=== PATIENT | male | born 1970 | race Caucasian/White ===

== ENCOUNTER → 2020-02-29 | Outpatient (CLI) | payer OTHER ==
--- NOTE | 2020-02-29 11:30 | US ---
EXAMINATION TYPE: US extremity nonvasc mass Rt DATE OF EXAM: 02/29/2020 COMPARISON: NONE CLINICAL HISTORY: 49-year-old male R22.2 SWELLING, MASS AND LUMP, TRUNK. Palpable noted lateral right lower thoracic area, and previous history of lipoma per patient. TECHNIQUE: Targeted sonographic examination on the patient's palpable site just left lateral of the t horacolumbar junction. 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 This seems to be located in the superficial muscle layer. No associated vas cularity. IMPRESSION: Vague hypoechoic area measuring 9 mm seems to correspond to the palpable site just right lateral to t he posterior thoracolumbar junction, localized to the superficial muscle layer. The exact etiology is unclear, consider a small contusion or some scarring. Clinical follow-up is recommended. If any enla rging palpable area develops, the area can be rescanned.
== END | disposition home or self-care (01) ==
LOC: RADUSWWP 09:50
PROVIDERS: ATTEND Family Medicine
DX: R22.2 Localized swelling, mass and lump, trunk (principal)

== ENCOUNTER 2020-09-05 08:36 | Day surgery (SDC) | payer OTHER ==
[2020-09-03 14:42] VITALS: BMI 30.2
[~2020-09-05 08:36] MED LIST: LACTATED RINGERS 1,000 ML IV SCH; LIDOCAINE 1% (10MG/ML) FOR IV START INTRADERMA PRN
[2020-09-05 10:00] VITALS: TEMP 97.1
[2020-09-05] MEDS ORDERED: fentaNYL (PF) 50 MCG/ML 2 ML AMP ONE (10:39)
[2020-09-05] MEDS ORDERED: MIDAZOLAM 2 MG/2 ML VIAL ONE (10:39)
[2020-09-05] MEDS ORDERED: LIDOCAINE 1% INJ 10MG/ML (20 ML MDV) ONE (10:39)
[2020-09-05] MEDS ORDERED: PROPOFOL 10 MG/ML 20 ML VIAL IV ONE (10:39)
--- NOTE | 2020-09-05 10:48 | P.PCN ---
Date of Procedure: 09/05/20 Procedure(s) Performed: BRIEF HISTORY: Patient is a 50-year-old, pleasant, white male scheduled for an upper endoscopy as a part of long-standing history of gastroesophageal reflux disease was 15 years duration.. He is on Prilosec 20 mg daily for the last 10 years. He scheduled for an upper endoscopy were propagated reflux PROCEDURE PERFORMED: Esophagogastroduodenoscopy with biopsy. PREOPERATIVE DIAGNOSIS: Long standing history of GERD. IV sedation per anesthesia. PROCEDURE: After informed consent was obtained, the patient was brought into the endoscopy unit. IV sedation was administered by Anesthesia under continuous monitoring. Initially the Olympus GIF-140 video endoscope was inserted into the mouth. Esophagus intubated without any difficulty. It was gradually advanced into the stomach and duodenum and carefully examined. The bulb and the second part of the duodenum appeared normal. The scope at this time was withdrawn to the stomach, adequately insufflated with air, and upon careful examination, mucosa of the antrum, had mild mottling of the mucosa which was biopsied. The body, cardia and the fundus appeared normal. The scope was then withdrawn into the esophagus. The GE junction was located at 39 cm from the incisors. It appeared slightly irregular. The rest of esophagus appeared esophagus appeared normal. There were no erosions or ulcerations seen and the patient tolerated the procedure well. IMPRESSION: 1. Minimal antral gastritis. 2. Irregular GE junction but no evidence of esophagitis or Leon's esophagus. RECOMMENDATIONS: The findings of this examination were discussed with the patient as well as his family.. He was advised to follow with the biopsy results. he will continue with Prilosec 20 mg daily and follow antireflux measures.
[2020-09-05 10:54] VITALS: RESP 16
[2020-09-05 11:17] VITALS: BP 119/82; PULSE 89
== END 2020-09-05 11:30 | disposition home or self-care (01) ==
LOC: ORWHC2ENDO 08:36
PROVIDERS: ATTEND Internal Medicine Gastroenterology
DX: K21.9 Gastro-esophageal reflux disease without esophagitis (principal); K29.70 Gastritis, unspecified, without bleeding; K22.8 Other specified diseases of esophagus; I10 Essential (primary) hypertension; Z79.51 Long term (current) use of inhaled steroids; Z79.899 Other long term (current) drug therapy; Z98.890 Other specified postprocedural states; F17.210 Nicotine dependence, cigarettes, uncomplicated
CPT/HCPCS: 88305; 43239; J2250; J2001; J3010; J2704

== ENCOUNTER 2020-10-31 09:39 | Day surgery (SDC) | payer OTHER ==
[2020-10-30 10:40] VITALS: BMI 30.7
[2020-10-31 10:53] VITALS: TEMP 98
[2020-10-31] MEDS ORDERED: PROPOFOL 10 MG/ML 20 ML VIAL IV ONE (11:07)
--- NOTE | 2020-10-31 11:26 | P.PCN ---
Date of Procedure: 10/31/20 Procedure(s) Performed: BRIEF HISTORY: Patient is a 50-year-old pleasant 8 male scheduled for an elective colonoscopy as a part of evaluation of intermittent rectal bleeding for the last few weeks duration. PROCEDURE PERFORMED: Colonoscopy snare polypectomy. PREOPERATIVE DIAGNOSIS: Intermittent rectal bleeding. IV sedation per Anesthesia. PROCEDURE: After informed consent was obtained, the patient, was brought into the endoscopy unit. IV sedation was administered by Anesthesia under continuous monitoring. Digital rectal examination was normal. Initially the Olympus CF-160 flexible video colonoscope was then inserted in the rectum, gradually advanced into the cecum without any difficulty. Careful examination was performed as the scope was gradually being withdrawn. Ileocecal valve and the appendiceal orifice were visualized and appeared normal. Prep was excellent. Mucosa of the cecum, appeared normal. In the hepatic flexure there was a 7 mm polyp removed by snare polypectomy. Rest of the ascending colon, transverse colon, descending colon, sigmoid colon, and rectum appeared normal. In the proximal rectum there was a 5 mm polyp removed by snare polypectomy. Retroflexion was performed in the rectum and small internal hemorrhoids were seen. The patient tolerated the procedure we ll. IMPRESSION: Grade 2 internal hemorrhoids 7 mm hepatic flexure polyp status post polypectomy 5 mm proximal rectal polyp status post polyp RECOMMENDATIONS: Findings of this examination were discussed with the patient as well as his family. He was advised to follow with the biopsy results. If the biopsy results and adenoma he can have a colonoscopy in 5 years. In the meantime he'll be a high-fiber diet and take fiber supplements a regular basis and avoid straining and constipation.
[2020-10-31 11:30] VITALS: RESP 16
[2020-10-31 11:45] VITALS: BP 131/82; PULSE 77
== END 2020-10-31 12:07 | disposition home or self-care (01) ==
LOC: ORWHC2ENDO 09:39
PROVIDERS: ATTEND Internal Medicine Gastroenterology
DX: K63.3 Ulcer of intestine (principal); K62.1 Rectal polyp; K64.1 Second degree hemorrhoids; I10 Essential (primary) hypertension; E78.5 Hyperlipidemia, unspecified; F17.210 Nicotine dependence, cigarettes, uncomplicated; K21.9 Gastro-esophageal reflux disease without esophagitis; Z79.899 Other long term (current) drug therapy; Z79.891 Long term (current) use of opiate analgesic; Z98.890 Other specified postprocedural states
CPT/HCPCS: 88305; 45385; J2704